=== PATIENT | male | born 1990 | race African-American/Black ===

== ENCOUNTER 2018-05-17 23:01 | Emergency (ER) | payer OTHER ==
[~2018-05-17] VITALS: Ht 170.2 cm; Wt 68.0 kg
[2018-05-18] MEDS ORDERED: MIRALAX510 GM PO (05:35)
== END 2018-05-18 05:35 | disposition home or self-care (01) ==
LOC: ER 23:01
DX: K59.09 Other constipation (principal)

== ENCOUNTER 2025-02-26 06:56 | Emergency (ER) | payer OTHER ==
[~2025-02-26] VITALS: Ht 170.2 cm; Wt 73.5 kg
[~2025-02-26 06:56] MED LIST: MIRALAX510 GM PO
[2025-02-26 07:31] VITALS: BP 134/91; O2SAT 98
[2025-02-26] MEDS ORDERED: KEPPRA1000 MG PO (07:34)
[2025-02-26] MEDS ORDERED: DEXAMETHASONE SODIUM PHOSPHATE 4 MG/ML VIAL IM STA (08:24)
[2025-02-26] MEDS ORDERED: LORATADINE 10 MG TABLET PO ONE (08:30)
[2025-02-26] MEDS ORDERED: GUAIFENESIN 200 MG/10 ML BLIST.PACK PO ONE (08:30)
[2025-02-26] MEDS ORDERED: ACETAMINOPHEN 500 MG GEL..CAP PO ONE (08:30)
[2025-02-26 10:07] LABS: BASO % 0.4 % (0.1-1.2); EOS # 0.23 (0.04-0.54); EOS % 4.0 % (0.7-7.0); LYMPH # 1.61 (1.18-3.74); LYMPH % 28.3 % (19.3-53.1); MEAN PLATELET VOLUME 10.10 fl (9.4-12.4); MONO # 0.87 (0.24-0.82); NEUT # 2.95 (1.56-6.13); NEUT % 51.8 % (34.0-71.1); RED CELL DISTRIBUTION WIDTH 11.7 % (11.6-14.4)
[2025-02-26 10:08] LABS: MONO % 15.3 % (4.7-12.5)
[2025-02-26 10:29] LABS: BUN CREA RATIO 9.0 (7.0-25.0); CREATININE SERUM 0.98 mg/dL (0.70-1.30); GFR 87.04; GLUCOSE FASTING 88.0 mg/dL (65-100); OSMOLALITY SERUM 279.0 MOSM/KG (275-295)
[2025-02-26 10:45] LABS: COVID-19 AG NEGATIVE (NEGATIVE)
[2025-02-26] MEDS ORDERED: DELSYM COUGH+C180 ML PO (12:06)
[2025-02-26] MEDS ORDERED: AZITHROMYCIN250 MG PO (12:06)
== END 2025-02-26 13:03 | disposition home or self-care (01) ==
LOC: ER 06:57
PROVIDERS: General Practice
DX: B34.9 Viral infection, unspecified (principal); R11.10 Vomiting, unspecified; R05.8 Other specified cough; R50.9 Fever, unspecified; Z20.822 Contact with and (suspected) exposure to COVID-19; Z91.013 Allergy to seafood